=== PATIENT | female | born 1985 | race Hispanic/Latino ===

== ENCOUNTER 2017-08-21 18:45 | Emergency (ER) | payer MEDICAID | END 2017-08-21 19:46 | disposition home or self-care (01) | LOC: EDH 18:45 | DX: F91.9 Conduct disorder, unspecified (principal); Z72.0 Tobacco use ==

== ENCOUNTER → 2019-12-11 | Outpatient (CLI) | payer MEDICAID | END | disposition home or self-care (01) | LOC: RAH 15:13 | PROVIDERS: ATTEND Family Medicine | DX: M54.5 Low back pain (principal); M54.6 Pain in thoracic spine | CPT/HCPCS: 72082 ==